=== PATIENT | female | born 1985 | race Caucasian/White ===

== ENCOUNTER 2025-02-20 16:00 | Emergency (ER) | payer BC ==
[~2025-02-20] VITALS: Ht 154.9 cm; Wt 72.6 kg
[~2025-02-20 16:00] MED LIST: ATARAX25 MG PO; AUGMENTIN 500 M1 TAB PO; BACTRIM DS 8001 TA1 PO; IBUPROFEN800 MG PO; MOTRIN800 MG PO; NKHM; PREDNISONE20 MG PO; PROZAC40 MG PO; REQUIP0.5 MG PO; RESTORIL30 MG PO; ROBITUSSIN DM120 ML PO; TRAMADOL HCL50 MG PO
[2025-02-20 16:42] VITALS: BP 115/62
[2025-02-20] MEDS ORDERED: IBUPROFEN 800 MG TAB PO ONE (17:20)
== END 2025-02-20 19:51 | disposition home or self-care (01) ==
LOC: ED 16:00
DX: S90.31XA Contusion of right foot, initial encounter (principal); Z90.49 Acquired absence of other specified parts of digestive tract; W19.XXXA Unspecified fall, initial encounter; Y93.89 Activity, other specified; Y92.89 Other specified places as the place of occurrence of the external cause; Y99.8 Other external cause status